=== PATIENT | female | born 1930 | race Caucasian/White ===

== ENCOUNTER 2020-11-25 19:07 | Emergency (ER) | payer MEDICARE ==
[~2020-11-25 19:07] MED LIST: AMLODIPINE BES2.5 MG PO; ANTIVERT 25MG T25 MG PO; ASPIRIN CHEWABL81 MG PO; ASPIRIN81 MG PO; ATORVASTATIN CA20 MG PO; BETAPACE 80MG T80 MG PO; CLARITIN10 MG PO; CRESTOR5 MG PO; LEVOFLOXACIN250 MG PO; LIPITOR TAB 2020 MG PO; LOPRESSOR 25 MG25 MG PO; NORVASC2.5 MG PO; OMEPRAZOLE20 MG PO; PRILOSEC OTC20 MG PO; PRINIVIL10 MG PO; SYNTHROID50 MCG PO; TYLENOL EXTRA500 MG PO; TYLENOL W/CODEIN1 E1 PO; VITAMIN D32000 UNIT PO; VITAMIN E200 UNI1 PO
[2020-11-25 20:56] LABS: HEMOGLOBIN 12.5 gm/dl (12.3-15.3); RED BLOOD COUNT 4.05 M/UL (4.00-5.10); WHITE BLOOD COUNT 11.4 K/UL (4.5-11.0)
[2020-11-25 21:19] LABS: BUN/CREATININE RATIO 23 (0-10)
== END 2020-11-25 23:51 | disposition home or self-care (01) ==
LOC: ER1 19:07
PROVIDERS: Family Medicine
DX: S42.212A Unspecified displaced fracture of surgical neck of left humerus, initial encounter for closed fracture (principal); I10 Essential (primary) hypertension; Z90.710 Acquired absence of both cervix and uterus; W01.0XXA Fall on same level from slipping, tripping and stumbling without subsequent striking against object, initial encounter
CPT/HCPCS: 73030; 80053; 85025; 99283

== ENCOUNTER 2020-11-30 19:23 | Inpatient (IN) | payer MEDICARE ==
[~2020-11-30] VITALS: Ht 160 cm; Wt 46.7 kg
[2020-11-30 20:08] LABS: HEMOGLOBIN 12.1 gm/dl (12.3-15.3); RED BLOOD COUNT 3.92 M/UL (4.00-5.10); WHITE BLOOD COUNT 6.7 K/UL (4.5-11.0)
[2020-11-30 20:30] LABS: BUN/CREATININE RATIO 25 (0-10)
[2020-11-30] MEDS ORDERED: SIMVASTATIN20 MG PO (21:27)
[2020-11-30] MEDS ORDERED: SOTALOL80 MG PO (21:28)
[2020-11-30] MEDS ORDERED: OMEPRAZOLE20 MG PO (21:29)
[2020-11-30] MEDS ORDERED: LISINOPRIL30 MG PO (21:29)
[2020-12-01 04:24] LABS: RED BLOOD COUNT 3.56 M/UL (4.00-5.10); WHITE BLOOD COUNT 6.1 K/UL (4.5-11.0)
[2020-12-01 04:35] LABS: BUN/CREATININE RATIO 28 (0-10)
[2020-12-02 06:06] LABS: RED BLOOD COUNT 3.58 M/UL (4.00-5.10)
[2020-12-02 06:09] LABS: WHITE BLOOD COUNT 8.9 K/UL (4.5-11.0)
[2020-12-02 06:28] LABS: BUN/CREATININE RATIO 34 (0-10)
[2020-12-03 07:45] LABS: HEMOGLOBIN 10.6 gm/dl (12.3-15.3); RED BLOOD COUNT 3.58 M/UL (4.00-5.10); WHITE BLOOD COUNT 9.1 K/UL (4.5-11.0)
[2020-12-03 08:17] LABS: BUN/CREATININE RATIO 41 (0-10)
[2020-12-04 05:19] LABS: HEMOGLOBIN 11.4 gm/dl (12.3-15.3); RED BLOOD COUNT 3.84 M/UL (4.00-5.10); WHITE BLOOD COUNT 9.9 K/UL (4.5-11.0)
[2020-12-04 05:35] LABS: BUN/CREATININE RATIO 53 (0-10)
[2020-12-05 06:24] LABS: HEMOGLOBIN 10.4 gm/dl (12.3-15.3); RED BLOOD COUNT 3.53 M/UL (4.00-5.10); WHITE BLOOD COUNT 7.6 K/UL (4.5-11.0)
[2020-12-05 06:36] LABS: BUN/CREATININE RATIO 47 (0-10)
[2020-12-05] MEDS ORDERED: ELIQUIS2.5 MG PO (14:14)
[2020-12-05] MEDS ORDERED: COLACE 100MG C100 MG PO (14:17)
[2020-12-05] MEDS ORDERED: MIRALAX17 GM PO (14:17)
== END 2020-12-05 18:16 | DRG 481 ==
LOC: ER1 19:23 → M/S 21:22 → CDU 21:22 → M/S 23:03
PROVIDERS: Emergency Medicine; Internal Medicine; Orthopaedic Surgery; ADMIT Internal Medicine
PROC: 0QS704Z Reposition Left Upper Femur with Internal Fixation Device, Open Approach (ICD-10-PCS; principal; 2020-11-30)
PROC: 2W39X1Z Immobilization of Left Upper Extremity using Splint (ICD-10-PCS; 2020-11-30)
DX: S72.142A Displaced intertrochanteric fracture of left femur, initial encounter for closed fracture (principal); S42.302A Unspecified fracture of shaft of humerus, left arm, initial encounter for closed fracture; Z20.822 Contact with and (suspected) exposure to COVID-19; I10 Essential (primary) hypertension; E03.9 Hypothyroidism, unspecified; E55.9 Vitamin D deficiency, unspecified; K21.9 Gastro-esophageal reflux disease without esophagitis; E78.5 Hyperlipidemia, unspecified; I49.5 Sick sinus syndrome; K44.9 Diaphragmatic hernia without obstruction or gangrene; W18.30XA Fall on same level, unspecified, initial encounter; I48.91 Unspecified atrial fibrillation; R53.81 Other malaise; Z95.0 Presence of cardiac pacemaker; Z79.01 Long term (current) use of anticoagulants; Z79.82 Long term (current) use of aspirin; Z90.710 Acquired absence of both cervix and uterus; Z82.49 Family history of ischemic heart disease and other diseases of the circulatory system
CPT/HCPCS: 36415; 71045; 73501; 73502; 73700; 76000; 80048; 80053; 81001; 82550; 82553; 83874; 84484; 85025; 85027; 93005; 97110; 97110-GP-CQ; 97116-GP-CQ; 97162; 97165; 99285; C1713; J0171; J0690; J1100; J2001; J2370; J2704; J2795; J3010; J7120; U0002